=== PATIENT | female | born 1985 | race Hispanic/Latino ===

== ENCOUNTER 2017-01-18 09:05 | Emergency (ER) | payer MEDICAID ==
[2017-01-18] MEDS ORDERED: TYLENOL PO ONE (12:37)
[2017-01-18] MEDS ORDERED: DELTASONE PO ONE (12:39)
[2017-01-18] MEDS ORDERED: ATROVENT IH ONE (12:41)
[2017-01-18] MEDS ORDERED: XOPENEX IH ONE (12:41)
--- NOTE | 2017-01-18 12:41 | Emergency Department Report ---
HPI - General Chief Complaint: Upper Respiratory Infection Time Seen by Provider: 01/18/17 12:36 - HPI HPI: Patient here reports that she has had and chest congestion 3 days. She said she was exposed to her daughter who had the same problem. She says she is coughing up green mucus from her chest and she has yellow mucus from her nose. She says she had some fever and chills. Denies any nausea or vomiting. Patient has a history of rheumatoid arthritis seizures plus endometriosis and she had a hysterectomy in the past. She does not have any cardiac problems and said that she's not having any chest pain she just feels like she is having pressure when she coughs. She said chest and back pain is 8 out of 10 that feels like pressure and only when she coughs. Patient reports that she's been coughing a lot nonstop. Patient is requesting pain medication because she is having rheumatoid arthritis pain to both her hands at 10 out of 10. ED Past Medical Hx - Past Medical History Previous Medical History?: Yes Hx Arthritis: Yes (RHEUMATOID) Hx Seizures: Yes Additional medical history: LUPUS. SICCA SYNDROME. ENDOMETRIOSIS - Surgical History Past Surgical History?: Yes Additional Surgical History: HYSTERECTOMY. "MULTIPLE SURGERIES FOR SCAR TISSUE REMOVAL" - Family History Family history: hypertension - Social History Smoking Status: Current Every Day Smoker Substance Use Type: Prescribed - Medications Home Medications: Home Medications Medication Instructions Recorded Confirmed Last Taken Type ALBUTEROL Inhaler [ProAir HFA 2 puff IH QID PRN #1 inhalation 01/18/17 Unknown Rx Inhaler] Azithromycin [Zithromax Z-ARRON] 250 mg PO DAILY #6 tab 01/18/17 Unknown Rx Cetirizine HCl [ZyrTEC] 10 mg PO QDAY #14 capsule 01/18/17 Unknown Rx Fluticasone [Flonase] 1 spray NS QDAY #1 bottle 01/18/17 Unknown Rx guaiFENesin/CODEINE [Robitussin AC] 5 ml PO Q8H PRN #75 oral.liqd 01/18/17 Unknown Rx ED Review of Systems ROS: Stated complaint: COUGH X3 DAYS/CHEST/BACK PAIN Other details as noted in HPI Comment: All other systems reviewed and negative Constitutional: chills, fever Eyes: denies: eye pain, vision change ENT: congestion. denies: ear pain, throat pain, dental pain Respiratory: cough. denies: shortness of breath, SOB with exertion, SOB at rest , stridor, wheezing Cardiovascular: chest pain (only with coughing). denies: palpitations, edema, syncope Gastrointestinal: denies: abdominal pain, nausea, vomiting Musculoskeletal: back pain (back pain only with coughing), arthralgia (hands from chronic rheumatoid arthritis) Skin: denies: rash Neurological: denies: headache, weakness, numbness, paresthesias, confusion, abnormal gait, vertigo Psychiatric: anxiety Physical Exam - Physical Exam Vital Signs: Vital Signs 01/18/17 09:55 Temperature 99.8 F H Pulse Rate 122 H Respiratory 20 Rate Blood Pressure 112/73 O2 Sat by Pulse 98 Oximetry Vital Signs 01/18/17 01/18/17 01/18/17 09:55 13:03 13:04 Temperature 99.8 F H Pulse Rate 122 H Pulse Rate [ 107 H 105 H Anterior Bilateral Throughout] Respiratory 20 Rate Respiratory 16 18 Rate [Anterior Bilateral Throughout] Blood Pressure 112/73 Blood Pressure [Left] O2 Sat by Pulse 98 Oximetry 01/18/17 01/18/17 13:59 15:03 Temperature Pulse Rate 120 H 99 H Pulse Rate [ Anterior Bilateral Throughout] Respiratory 18 16 Rate Respiratory Rate [Anterior Bilateral Throughout] Blood Pressure Blood Pressure 125/73 [Left] O2 Sat by Pulse 96 97 Oximetry General: 31-year-old patient well-nourished well-developed in no acute distress. Physical Exam: Head: Normocephalic atraumatic Mouth: Moist, no pharyngeal exudate or erythema. Uvula is midline and oral airway is patent. No facial swelling. No peritonsillar abscesses. Nose: Congested with erythema to mucosa. Clear Drainage. Maxillary and frontal sinuses nontender to palpate Neck: Supple, no C-spine tenderness, no tracheal deviation. Nontender to palpate. no adenopathy Ears: Bilateral TMs congested without erythema. Bilateral EAC without any redness swelling or drainage. Abdomen: Soft, nontender to palpate in all quadrants, normal bowel sounds in all quadrant and negative CVA tenderness bilaterally. Back: No vertebral or paraspinal tenderness. No saddle anesthesia. Patient able to ambulate without any difficulties. Negative SLR bilaterally. Neurological: GCS of 15, alert and oriented 3. Speech is clear and fluid. Normal gait. No motor or sensory deficit. Normal reflexes. No facial drooping. No pronator drift and negative Romberg. Eyes: Bilateral pupils equal and reactive to light, bilateral EOM intact. Bilateral sclera and conjunctiva without injection. Normal accommodation. No nystagmus Lungs: Bilateral upper lung moon without wheezing. No rhonchi wheezes or rales. Dry cough. Normal work of breathing. S4 nontender to palpate extremity; No CCE. +2 pulses. No neurovascular compromise. PIP and DIP joint swelling . Capillary refill is less than 3 seconds Cardiovascular: S1-S2, tachycardic at 122, regular rhythm. No murmurs. Skin: clean Dry and intact no rash no lesions Psych: Patient is anxious because she says she is in pain. ED Course Vital Signs 01/18/17 09:55 Temperature 99.8 F H Pulse Rate 122 H Respiratory 20 Rate Blood Pressure 112/73 O2 Sat by Pulse 98 Oximetry Vital Signs 01/18/17 01/18/17 01/18/17 09:55 13:03 13:04 Temperature 99.8 F H Pulse Rate 122 H Pulse Rate [ 107 H 105 H Anterior Bilateral Throughout] Respiratory 20 Rate Respiratory 16 18 Rate [Anterior Bilateral Throughout] Blood Pressure 112/73 Blood Pressure [Left] O2 Sat by Pulse 98 Oximetry 01/18/17 01/18/17 13:59 15:03 Temperature Pulse Rate 120 H 99 H Pulse Rate [ Anterior Bilateral Throughout] Respiratory 18 16 Rate Respiratory Rate [Anterior Bilateral Throughout] Blood Pressure Blood Pressure 125/73 [Left] O2 Sat by Pulse 96 97 Oximetry - Reevaluation(s) Reevaluation #1: 01/18/17 15:30 Patient initially given Deltasone 60 mg by mouth and Tylenol 975 mg by mouth for fever and Deltasone for cough and wheezing and arthritic pain. She did not get any pain relief on her heart rate remains above 120. Patient also with anxiety because she says she is in pain. Patient was given Xopenex 1.25 mg and Atrovent 0.5 mg for coughing and wheezing. Reevaluation, her lung sounds are clear. Patient was also given Percocet 5/325 2 tablets and Valium 10 mg by mouth 1. Patient heart rate is at 99 she feels better and she is on route to be discharged home with her . I discussed with patient that she needs to communicate with her pyrotechnician regarding pain management for chronic rheumatoid arthritis. 01/18/17 15:31 01/18/17 15:32 ED Medical Decision Making - Radiology Data Radiology results: report reviewed X-ray reveals no acute cardiopulmonary processes - Medical Decision Making ED course: I discussed the patient that she has bronchitis and sinusitis. Discussed with her because it's been 3 days is more than likely a virus but because she has underlying chronic medical problem such as lupus and rheumatoid arthritis and her immune system is compromise I will put her on antibiotic to prevent her from getting an infection. Patient voiced understanding of discharge diagnosis and treatment plan. Initially, patient was given Tylenol 975 mg by mouth for elevated temperature and Deltasone 60 mg by mouth for cough , wheezing and rheumatoid pain. This does not relieved her pain and her heart rate remained at 120. And also with anxiety. Patient was given an additional medication to relieve anxiety Valium 10 mg by mouth 1 and for pain Percocet 325 mg/52 tablets. Her heart rate is now below 100 she says she is feeling better. She was given Xopenex 1.25 mg along with Atrovent 0.5 mg for cough and wheezing and open reevaluation her lung sounds are clear. I asked with her that her x-ray results was normal. Patient discharged home with prescription for Zyrtec, Flonase, Zithromax and guaifenesin with codeine. Discussed with her she needs to follow-up with her primary care and pyrotechnician in 2 days. I also discussed with her she needs to follow up with pyrotechnician for chronic rheumatoid arthritis. Critical care attestation.: If time is entered above; I have spent that time in minutes in the direct care of this critically ill patient, excluding procedure time. ED Disposition Clinical Impression: Fever in adult, Arthralgia of both hands, Cough, Anxiety about health Acute bronchitis Qualifiers: Bronchitis organism: unspecified organism Qualified Code(s): J20.9 - Acute bronchitis, unspecified Acute inflammation of sinus Qualifiers: Sinusitis location: unspecified location Recurrence: not specified as recurrent Qualified Code(s): J01.90 - Acute sinusitis, unspecified Disposition: DISCHARGED TO HOME OR SELFCARE Is pt being admited?: No Does the pt Need Aspirin: No Condition: Stable Instructions: Acute Bronchitis (ED), Sinusitis (ED), Arthralgia (ED), Acute Cough (ED) Additional Instructions: Primary care in 2 days for follow-up bronchitis and sinusitis follow-up with your pyrotechnician in 2 days for evaluation of chronic rheumatoid arthritis. Cough medicine that was given to you will cause drowsiness so please do not drive or operate heavy machinery while taking take antibiotic as prescribed. Increase her fluid intake. Prescriptions: ALBUTEROL Inhaler [ProAir HFA Inhaler] 2 puff IH QID PRN #1 inhalation PRN Reason: Shortness Of Breath Azithromycin [Zithromax Z-ARRON] 250 mg PO DAILY #6 tab Cetirizine HCl [ZyrTEC] 10 mg PO QDAY #14 capsule Fluticasone [Flonase] 1 spray NS QDAY #1 bottle guaiFENesin/CODEINE [Robitussin AC] 5 ml PO Q8H PRN #75 oral.liqd PRN Reason: Cough Referrals: MICAELA JIMENEZ MD [Primary Care Provider] - 01/20/17 Your, Licensed Funeral Director in 2 days [Other] - 3-5 Days Forms: Accompanied Note, Work/School Release Form(ED)
--- NOTE | 2017-01-18 13:06 | XRay Report ---
ROUTINE CHEST, TWO VIEWS: PA and lateral views demonstrate the heart and mediastinal contour to be of normal size and shape. The lungs are clear and fully expanded and the soft tissues and bony structures are normal. IMPRESSION: Normal study.
[2017-01-18 14:00] VITALS: BP 125/73
[2017-01-18] MEDS ORDERED: PERCOCET 5/325 PO ONE (14:10)
[2017-01-18] MEDS ORDERED: VALIUM IM ONE (14:10)
== END 2017-01-18 15:59 | disposition home or self-care (01) ==
LOC: ED 09:05
DX: J20.9 Acute bronchitis, unspecified (principal); J01.90 Acute sinusitis, unspecified; M79.642 Pain in left hand; M79.641 Pain in right hand; M06.9 Rheumatoid arthritis, unspecified; M35.00 Sjogren syndrome, unspecified; F17.200 Nicotine dependence, unspecified, uncomplicated
CPT/HCPCS: 71020; 93005; 93010; 94640; 96372; 99283; J3360; J7512

== ENCOUNTER 2017-02-26 15:36 | Emergency (ER) | payer MEDICAID ==
[2017-02-26] MEDS ORDERED: ZOFRAN ODT PO ONE (20:10)
[2017-02-26] MEDS ORDERED: DILAUDID IM ONE (20:10)
--- NOTE | 2017-02-26 21:00 | Emergency Department Report ---
Entered by JAIMIE RODRIGES, acting as scribe for CATARINA CALLE PA. ED General Adult HPI - General Chief complaint: Pain General Stated complaint: RHEUMATOID ARTHRITIS FLARE Time Seen by Provider: 02/26/17 19:08 Source: patient Mode of arrival: Ambulatory Limitations: No Limitations - History of Present Illness Initial comments: 31 year old female with a PMHx of seizures and rheumatoid arthritis presents to the ED c/o a generalized, acute rheumatoid flare-up that began yesterday. Associated symptom includes body aches and knots on bilateral hand joints, but she denies fever, chills, numbness, and tingling. Rates pain an 8/10 in severity. Notes doubling up on prednisone prescription yesterday with no relief. MD Complaint: Rheumatoid flare-up Onset/Timin -: days(s) Location: upper extremity, lower extremity Radiation: non-radiation Severity scale (0 -10): 8 Quality: aching Consistency: constant Improves with: none (doubled up on prescribed prednisone with no relief) Worsens with: none Associated Symptoms: denies other symptoms, other (knots present on upper extremities). denies: chest pain, cough, fever/chills, headaches, malaise, nausea/vomiting, rash, shortness of breath, weakness Treatments Prior to Arrival: other (prednisone) - Related Data Home Medications Medication Instructions Recorded Confirmed Last Taken levETIRAcetam [Keppra TAB] 500 mg PO BID 02/26/17 02/26/17 02/26/17 predniSONE [Deltasone] 1 tab PO DAILY 02/26/17 02/26/17 02/25/17 Allergies Allergy/AdvReac Type Severity Reaction Status Date / Time latex Allergy Swelling Verified 01/18/17 09:59 ketorolac tromethamine AdvReac Seizure Verified 01/18/17 09:59 [From Toradol] meperidine HCl [From Demerol] AdvReac Seizure Verified 01/18/17 09:59 methadone AdvReac Seizure Verified 01/18/17 09:59 prochlorperazine AdvReac Seizure Verified 01/18/17 09:59 [From Compazine] prochlorperazine edisylate AdvReac Seizure Verified 01/18/17 09:59 [From Compazine] prochlorperazine maleate AdvReac Seizure Verified 01/18/17 09:59 [From Compazine] sulfamethoxazole AdvReac Hives Verified 01/18/17 09:59 [From Bactrim] trimethoprim [From Bactrim] AdvReac Hives Verified 01/18/17 09:59 ED Review of Systems Comment: All other systems reviewed and negative Constitutional: denies: chills, diaphoresis, fever, malaise, weakness Respiratory: denies: cough, orthopnea, shortness of breath, SOB with exertion, SOB at rest, stridor Cardiovascular: denies: chest pain, dyspnea on exertion, orthopnea Gastrointestinal: denies: nausea, vomiting Musculoskeletal: joint swelling, arthralgia. denies: back pain Skin: denies: rash Neurological: denies: headache, numbness, paresthesias, abnormal gait, vertigo ED Past Medical Hx - Past Medical History Previous Medical History?: Yes Hx Arthritis: Yes (RHEUMATOID) Hx Seizures: Yes Additional medical history: LUPUS. SICCA SYNDROME. ENDOMETRIOSIS - Surgical History Past Surgical History?: Yes Additional Surgical History: HYSTERECTOMY. "MULTIPLE SURGERIES FOR SCAR TISSUE REMOVAL" - Family History Family history: hypertension - Social History Smoking Status: Current Every Day Smoker Substance Use Type: Alcohol, Prescribed - Medications Home Medications: Home Medications Medication Instructions Recorded Confirmed Last Taken Type levETIRAcetam [Keppra TAB] 500 mg PO BID 02/26/17 02/26/17 02/26/17 History predniSONE [Deltasone] 1 tab PO DAILY 02/26/17 02/26/17 02/25/17 History ED Physical Exam - General Limitations: No Limitations General appearance: alert, in no apparent distress - Head Head exam: Present: atraumatic, normocephalic - Eye Eye exam: Present: normal appearance, EOMI Pupils: Present: normal accommodation - ENT ENT exam: Present: normal exam, mucous membranes moist - Neck Neck exam: Present: normal inspection, full ROM. Absent: tenderness, lymphadenopathy - Respiratory Respiratory exam: Present: normal lung sounds bilaterally. Absent: respiratory distress, wheezes, rales, rhonchi, chest wall tenderness - Cardiovascular Cardiovascular Exam: Present: regular rate, normal rhythm, normal heart sounds - GI/Abdominal GI/Abdominal exam: Present: soft, normal bowel sounds. Absent: distended, tenderness, guarding, rebound, rigid - Extremities Exam Extremities exam: Present: normal inspection (+2 pulses), full ROM, tenderness ( MP, DIP, and PIP joints), normal capillary refill, joint swelling (MP, DIP, and PIP joints). Absent: pedal edema, calf tenderness, other (ulnar deviation, but rheumatoid flare-up is present to extremities) - Back Exam Back exam: Present: normal inspection, full ROM. Absent: tenderness, CVA tenderness (R), CVA tenderness (L), muscle spasm, paraspinal tenderness, vertebral tenderness, rash noted - Neurological Exam Neurological exam: Present: alert, oriented X3, normal gait, reflexes normal. Absent: motor sensory deficit - Psychiatric Psychiatric exam: Present: normal affect, normal mood - Skin Skin exam: Present: warm, dry, intact. Absent: rash ED Course Vital Signs 02/26/17 02/26/17 16:04 20:07 Temperature 98.2 F Pulse Rate 100 H 96 H Respiratory 20 18 Rate Blood Pressure 114/80 Blood Pressure 118/78 [Left] O2 Sat by Pulse 99 97 Oximetry - Reevaluation(s) Reevaluation #1: 02/26/17 20:45 patient voiced pain relief after dilaudid , solumedrol and zofran ED Medical Decision Making - Medical Decision Making ED course: Patient with rheumatoid arthritis flareup. Patient was given Solu- Medrol 125 mg IM, Zofran 4 mg ODT and Dilaudid 10 mg IM fourth floor flareup after trying home medication. I instructed patient if she needs to follow-up with her cement mason on Tuesday. Pain is better and patient discharged home with family. ED Disposition Clinical Impression: Flare of rheumatoid arthritis, Arthralgia of multiple sites, Encounter for smoking cessation counseling Disposition: DISCHARGED TO HOME OR SELFCARE Is pt being admited?: No Does the pt Need Aspirin: No Condition: Stable Instructions: Rheumatoid Arthritis (ED), Chronic Pain (ED), How to Stop Smoking (ED) Additional Instructions: Follow-up with your cement mason in 2 days. Please stop smoking as this can increase her pain Referrals: PRIMARY CARE,MD [Primary Care Provider] - 3-5 Days Your, Coding Technician [Other] - 02/28/17 This documentation as recorded by the ANTELMO chase JASMINE,accurately reflects the service I personally performed and the decisions made by ,CATARINA CALLE PA.
[2017-02-26 21:05] VITALS: BP 108/67
== END 2017-02-26 21:08 | disposition home or self-care (01) ==
LOC: ED 15:36
DX: M06.9 Rheumatoid arthritis, unspecified (principal); R56.9 Unspecified convulsions; F17.200 Nicotine dependence, unspecified, uncomplicated; Z71.6 Tobacco abuse counseling; Z90.710 Acquired absence of both cervix and uterus; Z91.040 Latex allergy status; Z88.8 Allergy status to other drugs, medicaments and biological substances
CPT/HCPCS: 96372; 99282; J1170; J2930; Q0162

== ENCOUNTER 2019-05-12 09:36 | Emergency (ER) | payer MEDICAID ==
[2019-05-12 09:42] VITALS: BP 108/76
[2019-05-12] MEDS ORDERED: PERCOCET 5/325 PO ONE (10:25)
[2019-05-12] MEDS ORDERED: DECADRON IM ONE (10:25)
--- NOTE | 2019-05-12 10:25 | Emergency Department Report ---
ED General Adult HPI - General Chief complaint: Pain General Stated complaint: ARTHRITIS PAIN Time Seen by Provider: 05/12/19 10:15 Source: patient Mode of arrival: Ambulatory Limitations: No Limitations - History of Present Illness Initial comments: Patient reports history of rheumatoid arthritis and states that she is in a flare up which she describes as worse when she has had in a couple years. She is compliant with her meds as prescribed by rheumatology and was seen there yesterday and got a steroid injection but reports persistent pain. Also reports a low-grade fever. Denies any other complaints. -: Gradual, days(s) (3) Location: upper extremity, lower extremity Radiation: non-radiation Severity scale (0 -10): 8 Quality: aching Consistency: constant Improves with: none Worsens with: none Associated Symptoms: denies other symptoms Treatments Prior to Arrival: none - Related Data Home Medications Medication Instructions Recorded Confirmed Last Taken levETIRAcetam [Keppra TAB] 500 mg PO BID 02/26/17 02/26/17 02/26/17 predniSONE [Deltasone] 1 tab PO DAILY 02/26/17 02/26/17 02/25/17 Previous Rx's Medication Instructions Recorded Last Taken Type HYDROcodone/APAP 5-325 [[place] 1 each PO Q6HR PRN #12 tablet 02/26/17 Unknown Rx 5/325] methylPREDNISolone [Medrol] 4 mg PO QAM #1 tab.ds.pk 02/26/17 Unknown Rx Acetaminophen/Codeine [Tylenol 1 tab PO Q4HR PRN #15 tablet 05/12/19 Unknown Rx /Codeine # 3 tab] methylPREDNISolone [Medrol 4MG 4 mg PO DAILY #1 tab.ds.pk 05/12/19 Unknown Rx DOSEPAK (21 tabs)] Allergies Allergy/AdvReac Type Severity Reaction Status Date / Time latex Allergy Swelling Verified 01/18/17 09:59 ketorolac tromethamine AdvReac Seizure Verified 01/18/17 09:59 [From Toradol] meperidine HCl [From Demerol] AdvReac Seizure Verified 01/18/17 09:59 methadone AdvReac Seizure Verified 01/18/17 09:59 prochlorperazine AdvReac Seizure Verified 01/18/17 09:59 [From Compazine] prochlorperazine edisylate AdvReac Seizure Verified 01/18/17 09:59 [From Compazine] prochlorperazine maleate AdvReac Seizure Verified 01/18/17 09:59 [From Compazine] sulfamethoxazole AdvReac Hives Verified 01/18/17 09:59 [From Bactrim] trimethoprim [From Bactrim] AdvReac Hives Verified 01/18/17 09:59 ED Review of Systems ROS: Stated complaint: ARTHRITIS PAIN Other details as noted in HPI Comment: All other systems reviewed and negative Musculoskeletal: as per HPI ED Past Medical Hx - Past Medical History Previous Medical History?: Yes Hx Arthritis: Yes (RHEUMATOID) Hx Seizures: Yes Additional medical history: LUPUS. SICCA SYNDROME. ENDOMETRIOSIS - Surgical History Past Surgical History?: Yes Additional Surgical History: HYSTERECTOMY. "MULTIPLE SURGERIES FOR SCAR TISSUE REMOVAL" - Social History Smoking Status: Current Every Day Smoker - Medications Home Medications: Home Medications Medication Instructions Recorded Confirmed Last Taken Type HYDROcodone/APAP 5-325 [[place] 1 each PO Q6HR PRN #12 tablet 02/26/17 Unknown Rx 5/325] levETIRAcetam [Keppra TAB] 500 mg PO BID 02/26/17 02/26/17 02/26/17 History methylPREDNISolone [Medrol] 4 mg PO QAM #1 tab.ds.pk 02/26/17 Unknown Rx predniSONE [Deltasone] 1 tab PO DAILY 02/26/17 02/26/17 02/25/17 History Acetaminophen/Codeine [Tylenol 1 tab PO Q4HR PRN #15 tablet 05/12/19 Unknown Rx /Codeine # 3 tab] methylPREDNISolone [Medrol 4MG 4 mg PO DAILY #1 tab.ds.pk 05/12/19 Unknown Rx DOSEPAK (21 tabs)] ED Physical Exam - General Limitations: No Limitations General appearance: alert, in no apparent distress - Head Head exam: Present: atraumatic, normocephalic - Eye Eye exam: Present: normal appearance - ENT ENT exam: Present: mucous membranes moist - Neck Neck exam: Present: normal inspection - Respiratory Respiratory exam: Present: normal lung sounds bilaterally. Absent: respiratory distress - Cardiovascular Cardiovascular Exam: Present: regular rate, normal rhythm. Absent: systolic murmur, diastolic murmur, rubs, gallop - GI/Abdominal GI/Abdominal exam: Present: soft, normal bowel sounds - Extremities Exam Extremities exam: Present: other (findings suggestive of rheumatoid arthritis to bilateral hands with joint swelling. No signs of septic joint. CMS intact.) - Back Exam Back exam: Present: normal inspection - Neurological Exam Neurological exam: Present: alert, oriented X3 - Psychiatric Psychiatric exam: Present: normal affect, normal mood - Skin Skin exam: Present: warm, dry, intact, normal color. Absent: rash ED Course Vital Signs 05/12/19 05/12/19 09:41 10:15 Temperature 99.3 F Pulse Rate 88 Respiratory 18 18 Rate Blood Pressure 108/76 O2 Sat by Pulse 97 Oximetry ED Medical Decision Making - Medical Decision Making RA flare increase steroids pain control fu rheum - Differential Diagnosis RA, chronic pain Critical care attestation.: If time is entered above; I have spent that time in minutes in the direct care of this critically ill patient, excluding procedure time. ED Disposition Clinical Impression: Rheumatoid arthritis flare Disposition: DC-01 TO HOME OR SELFCARE Is pt being admited?: No Condition: Good Instructions: Rheumatoid Arthritis (ED) Prescriptions: methylPREDNISolone [Medrol 4MG DOSEPAK (21 tabs)] 4 mg PO DAILY #1 tab.ds.pk Acetaminophen/Codeine [Tylenol /Codeine # 3 tab] 1 tab PO Q4HR PRN #15 tablet PRN Reason: Pain Referrals: RAISA TOBAR MD [Referring] - 3-5 Days Time of Disposition: 10:24
[2019-05-12] MEDS ORDERED: NORMODYNE ONE (17:06)
== END 2019-05-12 10:31 | disposition home or self-care (01) ==
LOC: ED 09:36
DX: M06.9 Rheumatoid arthritis, unspecified (principal); F17.200 Nicotine dependence, unspecified, uncomplicated; M32.9 Systemic lupus erythematosus, unspecified
CPT/HCPCS: 99282

== ENCOUNTER 2019-09-10 21:12 | Inpatient (IN) | payer MEDICAID ==
[2019-09-10] MEDS ORDERED: ASPIRIN 325 MG TAB PO ONE (21:29)
[2019-09-10] MEDS ORDERED: ONDANSETRON 4 MG/2 ML INJ ONE (21:33)
[2019-09-10] MEDS ORDERED: fentaNYL 100 MCG/2 ML INJ ONE (21:33)
[2019-09-10] MEDS ORDERED: NITROGLYCERIN 2% OINT 1 GM TP ONE (21:34)
[2019-09-10] MEDS ORDERED: fentaNYL 100 MCG/2 ML INJ IV ONE ×2 (21:38→21:54)
[2019-09-10] MEDS ORDERED: ONDANSETRON 4 MG/2 ML INJ IV ONE (21:39)
[2019-09-10] MEDS ORDERED: methylPREDNISolone Sod Succinate 125 MG/2 ML INJ IV ONE (21:44)
--- NOTE | 2019-09-10 21:53 | XRay Report ---
CHEST 1 VIEW INDICATION / CLINICAL INFORMATION: Chest Pain. COMPARISON: 01/18/2017 FINDINGS: SUPPORT DEVICES: None. HEART / MEDIASTINUM: No significant abnormality. LUNGS / PLEURA: No significant pulmonary or pleural abnormality. No pneumothorax. ADDITIONAL FINDINGS: No significant additional findings. IMPRESSION: 1. No significant change Signer Name: Galindo Morales MD Signed: 09/10/2019 9:49 PM Workstation Name: [id number]
--- NOTE | 2019-09-10 21:59 | Emergency Department Report ---
HPI - General Chief Complaint: Chest Pain Time Seen by Provider: 09/10/19 21:38 - HPI HPI: Room 21 The patient is a 34-year-old female presenting with a chief complaint of chest pain. The patient states she began having some chest discomfort last night at approximately 21:00. The patient states this morning the pain worsened and feels as though someone is squeezing her lungs throat and jaw. Patient missed a shortness of breath, nausea/vomiting and diaphoresis with her pain. The patient describes her chest pain is constant but waxing and waning. Patient states the pain increases with movement and when lying supine. Patient denies cough or f ever. Location: [See above] Duration: [See above] Quality: [See above] Severity: [See above] Timing: [See above] Context: [See above] Modifying factors: [See above] Associated signs and symptoms: [see above] ED Past Medical Hx - Past Medical History Previous Medical History?: Yes Hx Arthritis: Yes (RHEUMATOID) Hx Seizures: Yes Additional medical history: LUPUS. SICCA SYNDROME. ENDOMETRIOSIS - Surgical History Past Surgical History?: Yes Additional Surgical History: HYSTERECTOMY. "MULTIPLE SURGERIES FOR SCAR TISSUE REMOVAL" - Family History Family history: no significant - Social History Smoking Status: Current Every Day Smoker (1/14 pack per day) Substance Use Type: None (denies illicit drug use), Alcohol (occasional) - Medications Home Medications: Home Medications Medication Instructions Recorded Confirmed Last Taken Type HYDROcodone/APAP 5-325 [[place] 1 each PO Q6HR PRN #12 tablet 02/26/17 Unknown Rx 5/325] levETIRAcetam [Keppra TAB] 500 mg PO BID 02/26/17 02/26/17 02/26/17 History methylPREDNISolone [Medrol] 4 mg PO QAM #1 tab.ds.pk 02/26/17 Unknown Rx predniSONE [Deltasone] 1 tab PO DAILY 02/26/17 02/26/17 02/25/17 History Acetaminophen/Codeine [Tylenol 1 tab PO Q4HR PRN #15 tablet 05/12/19 Unknown Rx /Codeine # 3 tab] methylPREDNISolone [Medrol 4MG 4 mg PO DAILY #1 tab.ds.pk 05/12/19 Unknown Rx DOSEPAK (21 tabs)] ED Review of Systems ROS: Stated complaint: CHEST PAIN/BACK Other details as noted in HPI Constitutional: diaphoresis Eyes: denies: eye pain ENT: denies: throat pain Respiratory: shortness of breath Cardiovascular: chest pain Endocrine: no symptoms reported Gastrointestinal: nausea, vomiting. denies: abdominal pain Genitourinary: denies: dysuria Musculoskeletal: denies: back pain Neurological: denies: headache Physical Exam - Physical Exam Vital Signs: Vital Signs 09/10/19 09/10/19 09/10/19 21:25 21:29 21:37 Temperature 98.7 F 98.7 F Pulse Rate 120 H 123 H Respiratory 16 20 16 Rate Blood Pressure 118/71 [Left] O2 Sat by Pulse 99 100 Oximetry 09/10/19 21:40 Temperature Pulse Rate Respiratory 18 Rate Blood Pressure [Left] O2 Sat by Pulse Oximetry Physical Exam: GENERAL: The patient is well-developed well-nourished lying on stretcher appearing to be in moderate discomfort. [] HEENT: Normocephalic. Atraumatic. Extraocular motions are intact. Patient has moist mucous membranes. NECK: Supple. Trachea midline CHEST/LUNGS: Clear to auscultation. There is no respiratory distress noted. HEART/CARDIOVASCULAR: Regular. There is tachycardia. There is no gallop rub or murmur. ABDOMEN: Abdomen is soft, nontender. Patient has normal bowel sounds. There is no abdominal distention. SKIN: There is no rash. There is no edema. There is no diaphoresis. NEURO: The patient is awake, alert, and oriented. The patient is cooperative. The patient has normal speech MUSCULOSKELETAL: There is no evidence of acute injury. ED Course Vital Signs 09/10/19 09/10/19 09/10/19 21:25 21:29 21:37 Temperature 98.7 F 98.7 F Pulse Rate 120 H 123 H Respiratory 16 20 16 Rate Blood Pressure 118/71 [Left] O2 Sat by Pulse 99 100 Oximetry 09/10/19 21:40 Temperature Pulse Rate Respiratory 18 Rate Blood Pressure [Left] O2 Sat by Pulse Oximetry - Consultations Consultation #1: 09/10/19 21:29 EKG sent to and briefly discussed with Dr Kidd- pericarditis. Can cancel code STEMI for now and call back with further history. After call back has recommended that we administer steroids and anti-inflammatory and treat the patient for pericarditis ED Medical Decision Making - Lab Data Result diagrams: 09/10/19 23:40 09/10/19 21:39 Laboratory Tests 09/10/19 09/10/19 21:39 23:40 WBC 18.9 H RBC 4.57 Hgb 13.3 Hct 40.4 MCV 88 MCH 29 MCHC 33 RDW 15.7 H Plt Count 340 Lymph % (Auto) Sample Maker Hand [place] % (Auto) Sample Maker Hand Eos % (Auto) Sample Maker Hand Baso % (Auto) Sample Maker Hand Lymph # Sample Maker Hand [place] # Sample Maker Hand Eos # Sample Maker Hand Baso # Sample Maker Hand Seg Neutrophils % Sample Maker Hand Seg Neutrophils # Sample Maker Hand Sodium 133 L Potassium 3.9 Chloride 100.5 Carbon Dioxide 16 L Anion Gap 20 BUN 12 Creatinine 0.8 Estimated GFR > 60 BUN/Creatinine Ratio 15 Glucose 144 H Calcium 9.0 Troponin T < 0.010 - EKG Data -: EKG Interpreted by Me EKG shows normal: sinus rhythm Rate: tachycardia (115 bpm) - EKG Data When compared to previous EKG there are: changes noted Interpretation: nonspecific ST-T wave apoorva (ST elevation in leads 2, 3, aVF, V5, V6.) - Radiology Data Radiology results: report reviewed (chest x-ray, VQ scan), image reviewed (chest x-ray, VQ scan) interpreted by me: Chest x-ray-no focal infiltrates, no pneumothorax [address] [address] XRay Report Signed Patient: TRINIDAD BECKER MR#: [id number] : 1985 Acct:[id number] Age/Sex: 34 / F ADM Date: 09/10/19 Loc: ED Attending Dr: Ordering Physician: PATTIE SANDERS MD Date of Service: 09/10/19 Procedure(s): XR chest 1V ap Accession Number(s): [id number] cc: PATTIE SANDERS MD Fluoro Time In Minutes: CHEST 1 VIEW INDICATION / CLINICAL INFORMATION: Chest Pain. COMPARISON: 01/18/2017 FINDINGS: SUPPORT DEVICES: None. HEART / MEDIASTINUM: No significant abnormality. LUNGS / PLEURA: No significant pulmonary or pleural abnormality. No pneumothorax. ADDITIONAL FINDINGS: No significant additional findings. IMPRESSION: 1. No significant change Signer Name: Galindo Morales MD Signed: 09/10/2019 9:49 PM Workstation Name: [id number] Transcribed By: JANIS Dictated By: Galindo Morales MD Electronically Authenticated By: Galindo Morales MD Signed Date/Time: 09/10/192148 DD/ 47 TD/TT: [facility] [address] [place] [address] Nuclear Medicine Report Signed Patient: TRINIDAD BECKER MR#: [id number] : 1985 Acct:[id number] Age/Sex: 34 / F ADM Date: 09/10/19 Loc: ED Attending Dr: Ordering Physician: PATTIE SANDERS MD Date of Service: 09/10/19 Procedure(s): NM lung scan perf/vent Accession Number(s): [id number] cc: PATTIE SANDERS MD Ventilation/perfusion scan of the lungs INDICATION: Chest pain and pleurisy TECHNIQUE: The patient was administered 5.3 mCi of technetium 99 MAA for the perfusion phase of the study and 8.8 mCi of xenon-133 for the ventilation phase FINDINGS: The ventilation phase shows minimal air trapping at the left base. The perfusion phase shows no focal segmental or subsegmental perfusion defects and there is no evidence of pulmonary embolus. Signer Name: Galindo Morales MD Signed: 09/10/2019 11:11 PM Workstation Name: [id number] Transcribed By: JANIS Dictated By: Galindo Morales MD Electronically Authenticated By: Galindo Morales MD Signed Date/Time: 09/10/192310 DD/ 08 TD/TT: - Differential Diagnosis ACS, pericarditis, PE, GERD Critical care attestation.: If time is entered above; I have spent that time in minutes in the direct care of this critically ill patient, excluding procedure time. ED Disposition Clinical Impression: Chest pain, Acute pericarditis Disposition: OP ADMIT IP TO THIS HOSP Is pt being admited?: Yes Does the pt Need Aspirin: Yes Condition: Fair Instructions: Chest Pain (ED) Referrals: PRIMARY CARE, [Primary Care Provider] - 3-5 Days Time of Disposition: 00:05 (hospitalist paged (Dr Bowden))
[2019-09-10 22:22] LABS: BUN/Creatinine Ratio 15; Blood Urea Nitrogen 12 mg/dL (7-17); Hemolysis Index 15
--- NOTE | 2019-09-10 23:15 | Nuclear Medicine Report ---
Ventilation/perfusion scan of the lungs INDICATION: Chest pain and pleurisy TECHNIQUE: The patient was administered 5.3 mCi of technetium 99 MAA for the perfusion phase of the s tudy and 8.8 mCi of xenon-133 for the ventilation phase FINDINGS: The ventilation phase shows minimal air trapping at the left base. The perfusion phase show s no focal segmental or subsegmental perfusion defects and there is no evidence of pulmonary embolus. Signer Name: Galindo Morales MD Signed: 09/10/2019 11:11 PM Workstation Name: [id number]
[2019-09-10] MEDS ORDERED: HYDROcodone/ACETAMINOPHEN 5-325 MG TAB PO ONE (23:51)
[2019-09-11 00:01] LABS: Hematocrit 40.4 % (30.3-42.9); Hemoglobin 13.3 gm/dl (10.1-14.3); Mean Corpuscular HGB Conc 33 % (30-34); Mean Corpuscular Volume 88 fl (79-97); Platelet Count 340 K/mm3 (140-440); Red Blood Count 4.57 M/mm3 (3.65-5.03); Red Cell Distribution Width 15.7 % (13.2-15.2)
[2019-09-11] MEDS ORDERED: NITROGLYCERIN 0.4 MG TAB SUBL SL PRN (00:46)
[2019-09-11] MEDS ORDERED: MAGNESIUM HYDROXIDE (MOM) ORAL LIQD UDC PO PRN (00:46)
[2019-09-11] MEDS ORDERED: ACETAMINOPHEN 325 MG TAB PO PRN (00:46)
[2019-09-11] MEDS ORDERED: IBUPROFEN 600 MG TAB PO PRN (01:00)
--- NOTE | 2019-09-11 02:23 | History and Physical Report ---
History of Present Illness Date of examination: 09/11/19 Date of admission: 09/11/19 Chief complaint: Chest pain History of present illness: 34-year-old female presenting to the emergency room with chest pain. Chest pain is said to be squeezing in nature. She has had associated nausea and vomiting and diaphoresis. She has significant history of seizure disorder, lupus and rheumatoid arthritis. There is no known relieving or exacerbating factor for her chest pain. At times it was difficult to take a deep breath. EKG done in the emergency room and reviewed by the sign manufacturer indicates possible pericarditis. Patient was given steroids and nonsteroidal anti-inflammatory medication with some relief. Past History Past Medical History: seizures, other (Lupus, rheumatoid arthritis,) Past Surgical History: , hysterectomy, Other (Laparoscopic surgeries in the past) Social history: smoking (Smokes less than half a pack of cigarette daily, takes alcohol occasionally) Family history: CAD, cancer, diabetes Medications and Allergies Allergies Allergy/AdvReac Type Severity Reaction Status Date / Time latex Allergy Swelling Verified 01/18/17 09:59 ketorolac tromethamine AdvReac Seizure Verified 01/18/17 09:59 [From Toradol] meperidine HCl [From Demerol] AdvReac Seizure Verified 01/18/17 09:59 methadone AdvReac Seizure Verified 01/18/17 09:59 prochlorperazine AdvReac Seizure Verified 01/18/17 09:59 [From Compazine] prochlorperazine edisylate AdvReac Seizure Verified 01/18/17 09:59 [From Compazine] prochlorperazine maleate AdvReac Seizure Verified 01/18/17 09:59 [From Compazine] sulfamethoxazole AdvReac Hives Verified 01/18/17 09:59 [From Bactrim] trimethoprim [From Bactrim] AdvReac Hives Verified 01/18/17 09:59 Home Medications Medication Instructions Recorded Confirmed Last Taken Type HYDROcodone/APAP 5-325 [[place] 1 each PO Q6HR PRN #12 tablet 02/26/17 Unknown Rx 5/325] levETIRAcetam [Keppra TAB] 500 mg PO BID 02/26/17 02/26/17 02/26/17 History methylPREDNISolone [Medrol] 4 mg PO QAM #1 tab.ds.pk 02/26/17 Unknown Rx predniSONE [Deltasone] 1 tab PO DAILY 02/26/17 02/26/17 02/25/17 History Acetaminophen/Codeine [Tylenol 1 tab PO Q4HR PRN #15 tablet 05/12/19 Unknown Rx /Codeine # 3 tab] methylPREDNISolone [Medrol 4MG 4 mg PO DAILY #1 tab.ds.pk 05/12/19 Unknown Rx DOSEPAK (21 tabs)] Active Meds: Active Medications Acetaminophen (Tylenol) 650 mg PO Q4H PRN PRN Reason: Pain MILD(1-3)/Fever >100.5/LARIOS Ibuprofen (Ibuprofen) 600 mg PO Q6H PRN PRN Reason: Pain, Mild (1-3) Magnesium Hydroxide (Milk Of Magnesia) 30 ml PO Q4H PRN PRN Reason: Constipation Morphine Sulfate (Morphine) 2 mg IV Q5MIN PRN PRN Reason: Chest Pain unrelieved by NTG Nitroglycerin (Nitrostat) 0.4 mg SL Q5M PRN PRN Reason: Chest Pain Ondansetron HCl (Zofran) 4 mg IV Q8H PRN PRN Reason: Nausea And Vomiting Pantoprazole Sodium (Protonix) 40 mg PO QDAY CHAD Sodium Chloride (Sodium Chloride Flush Syringe 10 Ml) 10 ml IV PRN PRN PRN Reason: LINE FLUSH Sodium Chloride (Sodium Chloride Flush Syringe 10 Ml) 10 ml IV BID CHAD Review of Systems Cardiovascular: chest pain Exam - Constitutional Vitals: Temp Pulse Resp BP Pulse Ox 98.7 F 91 H 14 105/69 97 09/10/19 21:37 09/11/19 00:02 09/11/19 00:02 09/11/19 00:02 09/11/19 00:02 General appearance: Present: no acute distress, mild distress - EENT Eyes: Present: PERRL, EOM intact ENT: hearing intact, clear oral mucosa, dentition normal - Neck Neck: Present: supple, normal ROM - Respiratory Respiratory effort: normal Respiratory: bilateral: CTA - Cardiovascular Rhythm: regular Heart Sounds: Present: S1 & S2 - Extremities Extremities: no ischemia, No edema Peripheral Pulses: within normal limits - Integumentary Integumentary: Present: clear, warm, dry - Musculoskeletal Musculoskeletal: strength equal bilaterally - Psychiatric Psychiatric: appropriate mood/affect, intact judgment & insight, cooperative - Neurologic Neurologic: CNII-XII intact, moves all extremities Results - Labs CBC & Chem 7: 09/10/19 23:40 09/10/19 21:39 Labs: Abnormal lab results 09/10/19 09/10/19 Range/Units 21:39 23:40 WBC 18.9 H (4.5-11.0) K/mm3 RDW 15.7 H (13.2-15.2) % Sodium 133 L (137-145) mmol/L Carbon Dioxide 16 L (22-30) mmol/L Glucose 144 H (65-100) mg/dL Assessment and Plan - Patient Problems (1) Acute pericarditis Current Visit: Yes Status: Acute Plan to address problem: Patient admitted to telemetry. Chest pain probably secondary to pericarditis. Been placed on nonsteroidal anti-inflammatory medication. We will monitor EKG and will await further evaluation by sign manufacturer. Patient will be scheduled for echocardiogram, and will also check serial cardiac enzymes. (2) Chest pain Current Visit: Yes Status: Acute Plan to address problem: Probably secondary to pericarditis. We will continue to monitor on telemetry. (3) DVT prophylaxis Current Visit: Yes Status: Acute Plan to address problem: We place on subcu to heparin. (4) Full code status Current Visit: Yes Status: Acute
[2019-09-11] MEDS: MORPHINE 2 MG/1 ML INJ IV PRN ×3 (04:28→23:27)
[2019-09-11 04:31] LABS: Basophils % (Manual) 0 % (0.0-1.8); Eosinophils % (Manual) 0 % (0.0-4.3); Total Cells Counted 100
[2019-09-11 04:32] LABS: Anisocytosis 1+; Platelet Estimate Consistent w Auto
[2019-09-11 06:51] LABS: Hematocrit 41.1 % (30.3-42.9); Hemoglobin 13.2 gm/dl (10.1-14.3); Mean Corpuscular HGB Conc 32 % (30-34); Mean Corpuscular Volume 89 fl (79-97); Platelet Count 353 K/mm3 (140-440); Red Blood Count 4.64 M/mm3 (3.65-5.03); Red Cell Distribution Width 15.8 % (13.2-15.2)
[2019-09-11 07:05] LABS: BUN/Creatinine Ratio 18; Blood Urea Nitrogen 11 mg/dL (7-17); Calcium 9.3 mg/dL (8.4-10.2); Hemolysis Index 10
[2019-09-11 09:23] LABS: Basophils % (Manual) 0 % (0.0-1.8); Eosinophils % (Manual) 0 % (0.0-4.3); Myelocytes # (Manual) 0.2 K/mm3; Platelet Estimate Consistent w Auto; RBC Morphology Normal; Total Cells Counted 100
[2019-09-11] MEDS: PANTOPRAZOLE 40 MG TAB PO SCH (09:59)
--- NOTE | 2019-09-11 10:43 | Consultation ---
History of Present Illness Consult date: 09/11/19 Consult reason: chest pain History of present illness: The patient said 34-year-old woman with lupus, her lupus is currently maintained on prednisone therapy. She has no prior cardiac history. She presented to the hospital with a one to 2 day history of persistent chest pain. She describes generalized pain which radiates to her back and neck. The pain is pleuritic, in the supine position, and somewhat relieved by sitting up and leaning forward. There is no shortness of breath, no palpitations, no lower extremity edema. T here is no exertional component. EKG is sinus rhythm with diffuse convex ST elevations, very suggestive of acute pericarditis.x is normal. A chest CTA was negative including negative PE protocol. Laboratory exam shows a leukocytosis of 18,000, as noted patient is on long-term oral steroids. Past History Past Medical History: seizures, other (Lupus, rheumatoid arthritis,) Past Surgical History: , hysterectomy, Other (Laparoscopic surgeries in the past) Social history: smoking (Smokes less than half a pack of cigarette daily, takes alcohol occasionally) Family history: CAD, cancer, diabetes Medications and Allergies Allergies Allergy/AdvReac Type Severity Reaction Status Date / Time latex Allergy Swelling Verified 01/18/17 09:59 ketorolac tromethamine AdvReac Seizure Verified 01/18/17 09:59 [From Toradol] meperidine HCl [From Demerol] AdvReac Seizure Verified 01/18/17 09:59 methadone AdvReac Seizure Verified 01/18/17 09:59 prochlorperazine AdvReac Seizure Verified 01/18/17 09:59 [From Compazine] prochlorperazine edisylate AdvReac Seizure Verified 01/18/17 09:59 [From Compazine] prochlorperazine maleate AdvReac Seizure Verified 01/18/17 09:59 [From Compazine] sulfamethoxazole AdvReac Hives Verified 01/18/17 09:59 [From Bactrim] trimethoprim [From Bactrim] AdvReac Hives Verified 01/18/17 09:59 Home Medications Medication Instructions Recorded Confirmed Last Taken Type HYDROcodone/APAP 5-325 [[place] 1 each PO Q6HR PRN #12 tablet 02/26/17 Unknown Rx 5/325] levETIRAcetam [Keppra TAB] 500 mg PO BID 02/26/17 02/26/17 02/26/17 History methylPREDNISolone [Medrol] 4 mg PO QAM #1 tab.ds.pk 02/26/17 Unknown Rx predniSONE [Deltasone] 1 tab PO DAILY 02/26/17 02/26/17 02/25/17 History Acetaminophen/Codeine [Tylenol 1 tab PO Q4HR PRN #15 tablet 05/12/19 Unknown Rx /Codeine # 3 tab] methylPREDNISolone [Medrol 4MG 4 mg PO DAILY #1 tab.ds.pk 05/12/19 Unknown Rx DOSEPAK (21 tabs)] Active Meds: Active Medications Acetaminophen (Tylenol) 650 mg PO Q4H PRN PRN Reason: Pain MILD(1-3)/Fever >100.5/LARIOS Magnesium Hydroxide (Milk Of Magnesia) 30 ml PO Q4H PRN PRN Reason: Constipation Morphine Sulfate (Morphine) 2 mg IV Q5MIN PRN PRN Reason: Chest Pain unrelieved by NTG Last Admin: 09/11/19 04:28 Dose: 2 mg Documented by: Nitroglycerin (Nitrostat) 0.4 mg SL Q5M PRN PRN Reason: Chest Pain Ondansetron HCl (Zofran) 4 mg IV Q8H PRN PRN Reason: Nausea And Vomiting Pantoprazole Sodium (Protonix) 40 mg PO QDAY [facility] Last Admin: 09/11/19 09:59 Dose: 40 mg Documented by: Sodium Chloride (Sodium Chloride Flush Syringe 10 Ml) 10 ml IV PRN PRN PRN Reason: LINE FLUSH Sodium Chloride (Sodium Chloride Flush Syringe 10 Ml) 10 ml IV BID [facility] Last Admin: 09/11/19 10:00 Dose: 10 ml Documented by: Review of Systems Cardiovascular: chest pain, no orthopnea, no palpitations, no rapid/irregular heart beat, no edema, no syncope, no lightheadedness, no shortness of breath Physical Examination Vital Signs Temp Resp Pulse Ox 98.7 F 16 99 09/10/19 21:25 09/10/19 21:25 09/10/19 21:25 General appearance: no acute distress HEENT: Positive: PERRL Neck: Positive: neck supple Cardiac: Positive: Reg Rate and Rhythm (no murmur, no pericardial rub) Lungs: Positive: clear to auscultation Neuro: Positive: Grossly Intact Abdomen: Positive: Soft Female genitourinary: deferred Skin: Positive: Clear Extremities: Absent: edema Results 09/11/19 05:50 09/11/19 05:50 CBC 09/10/19 09/11/19 Range/Units 23:40 05:50 WBC 18.9 H 15.2 H (4.5-11.0) K/mm3 RBC 4.57 4.64 (3.65-5.03) M/mm3 Hgb 13.3 13.2 (10.1-14.3) gm/dl Hct 40.4 41.1 (30.3-42.9) % Plt Count 340 353 (140-440) K/mm3 Lymph # Wrap Knitting Machine Operator [facility] # Wrap Knitting Machine Operator Eos # Wrap Knitting Machine Operator Baso # Wrap Knitting Machine Operator Comprehensive Metabolic Panel 09/10/19 09/11/19 Range/Units 21:39 05:50 Sodium 133 L 141 D (137-145) mmol/L Potassium 3.9 4.7 D (3.6-5.0) mmol/L Chloride 100.5 102.6 (98-107) mmol/L Carbon Dioxide 16 L 23 D (22-30) mmol/L BUN 12 11 (7-17) mg/dL Creatinine 0.8 0.6 L (0.7-1.2) mg/dL Glucose 144 H 137 H (65-100) mg/dL Calcium 9.0 9.3 (8.4-10.2) mg/dL EKG interpretations - Telemetry EKG Rhythm: Sinus Rhythm (with diffuse ST segment elevations suggestive of acute pericarditis) Assessment and Plan - Patient Problems (1) Acute pericarditis Current Visit: Yes Status: Acute Plan to address problem: Patient's chest pain characteristics, ECG appear to suggest acute pericarditis. We will add indomethacin 50 mg 3 times a day to her regimen. Although the patient reports a history of allergic reaction to Toradol, she is able to tolerate nonsteroidal agents including proven tolerance to ibuprofen. Echocardiogram will be done for left ventricular function assessment, and assessment for pericardial effusion.
[2019-09-11] MEDS ORDERED: COLCHICINE 0.6 MG CAP PO SCH (11:00)
[2019-09-11] MEDS: COLCHICINE 0.6 MG CAP PO SCH ×2 (11:38→21:45)
[2019-09-11] MEDS: INDOMETHACIN 25 MG CAP PO SCH ×2 (15:00→21:45)
[2019-09-11] MEDS: ONDANSETRON 4 MG/2 ML INJ IV PRN (18:44)
[2019-09-12] MEDS: INDOMETHACIN 25 MG CAP PO SCH (06:20)
[2019-09-12 07:59] LABS: Basophils # (Auto) 0.1 K/mm3 (0.0-0.1); Basophils % (Auto) 0.7 % (0.0-1.8); Eosinophils % (Auto) 0.1 % (0.0-4.3); Hematocrit 37.4 % (30.3-42.9); Hemoglobin 12.4 gm/dl (10.1-14.3); Mean Corpuscular HGB Conc 33 % (30-34); Mean Corpuscular Volume 89 fl (79-97); Monocytes % (Auto) 10.9 % (0.0-7.3); Platelet Count 318 K/mm3 (140-440); Red Blood Count 4.22 M/mm3 (3.65-5.03); Red Cell Distribution Width 15.5 % (13.2-15.2)
[2019-09-12 08:07] LABS: INR 0.82 (0.87-1.13)
[2019-09-12 08:20] LABS: BUN/Creatinine Ratio 26; Blood Urea Nitrogen 18 mg/dL (7-17); Calcium 8.8 mg/dL (8.4-10.2); Hemolysis Index 11
[2019-09-12] MEDS: ONDANSETRON 4 MG/2 ML INJ IV PRN (08:22)
[2019-09-12] MEDS: MORPHINE 2 MG/1 ML INJ IV PRN (08:22)
[2019-09-12 09:55] VITALS: BP 115/76
--- NOTE | 2019-09-12 10:18 | Discharge Summary ---
Providers - Providers Date of Admission: 09/11/19 02:55 Attending physician: SHIMA TINEO MD 09/11/19 Consult to Cardiac Rehabilitation [CONS] Routine Reason For Exam: Phase I 09/11/19 00:46 Consult to Cardiology [CONS] Routine Consulting Provider: SWETA JOE Reason For Exam: chest pain Primary care physician: AT [facility] Hospitalization Condition: Fair Hospital course: 34-year-old woman who presented with chest pain. She was found to have acute pericarditis. Her risk factors included lupus and rheumatoid arthritis. She was treated medically and subsequently discharged. Tobacco abuse/dependence Smoking cessation counseling performed for 10 minutes, nicotine patches when necessary Preventative health counseling performed for 17 minutes Diagnosis Acute pericarditis Lupus Rheumatoid arthritis Tobacco abuse/dependence SIRS w/out organ dysfunction, no infection Disposition: DC- TO HOME OR SELFCARE Time spent for discharge: 33 mins Core Measure Documentation - Palliative Care Palliative Care/ Comfort Measures: Not Applicable - Core Measures Any of the following diagnoses?: none Exam - Constitutional Vitals: Temp Pulse Resp BP Pulse Ox 97.7 F 89 16 115/76 94 09/12/19 08:14 09/12/19 03:56 09/12/19 08:14 09/12/19 08:14 09/12/19 03:35 General appearance: Present: no acute distress, well-nourished - EENT Eyes: Present: PERRL ENT: hearing intact, clear oral mucosa - Neck Neck: Present: supple, normal ROM - Respiratory Respiratory effort: normal Respiratory: bilateral: CTA - Cardiovascular Heart Sounds: Present: S1 & S2, rub. Absent: click - Extremities Extremities: pulses symmetrical, No edema Peripheral Pulses: within normal limits - Abdominal General gastrointestinal: Present: soft, non-tender, non-distended, normal bowel sounds Female genitourinary: Present: normal - Integumentary Integumentary: Present: clear, warm, dry - Musculoskeletal Musculoskeletal: gait normal, strength equal bilaterally - Psychiatric Psychiatric: appropriate mood/affect, intact judgment & insight - Neurologic Neurologic: CNII-XII intact, moves all extremities Plan Follow up with: PRIMARY CARE, [Primary Care Provider] - 3-5 Days Prescriptions: RX: Colchicine 0.6 mg PO BID #60 capsule RX: Indomethacin [Indocin] 50 mg PO Q8HR #50 capsule RX: HYDROcodone/APAP 5-325 [[place] 5-325 mg TAB] 1 each PO Q6HR PRN #12 tablet PRN Reason: Pain
--- NOTE | 2019-09-12 11:07 | Progress Note ---
<LUL HEALY - Last Filed: 09/12/19 11:03> Assessment and Plan - Patient Problems (1) Acute pericarditis Current Visit: Yes Status: Acute Plan to address problem: Acute pericarditis Echocardiogram done shows a normal left ventricular systolic function, ejection fraction 60-65%. Continue indomethacin and Colchicine as ordered. Although the patient reports a history of allergic reaction to Toradol, she is able to tolerate nonsteroidal agents including proven tolerance to ibuprofen. Subjective Date of service: 09/12/19 Interval history: Patient reports continued chest pain but some improvement since admission. Objective Vital Signs Temp Pulse Resp BP Pulse Ox 09/12/19 08:14 97.7 F 16 115/76 09/12/19 03:56 89 09/12/19 03:35 98.5 F 71 18 109/76 94 09/11/19 23:27 18 09/11/19 22:43 98.1 F 89 18 118/78 99 09/11/19 20:17 98.3 F 93 H 18 107/75 99 09/11/19 19:05 95 H 09/11/19 16:07 98.2 F 18 112/67 09/11/19 12:00 92 H 09/11/19 11:41 18 100/64 09/11/19 11:40 91 H 91/57 94 - Physical Examination General: No Apparent Distress HEENT: Positive: PERRL Neck: Positive: neck supple Cardiac: Positive: Reg Rate and Rhythm Lungs: Positive: Normal Breath Sounds Neuro: Positive: Grossly Intact Abdomen: Positive: Soft Extremities: Absent: edema - Labs and Meds Coagulation 09/12/19 Range/Units 07:25 PT 11.2 L (12.2-14.9) Sec. INR 0.82 L (0.87-1.13) CBC 09/12/19 Range/Units 07:40 WBC 9.4 (4.5-11.0) K/mm3 RBC 4.22 (3.65-5.03) M/mm3 Hgb 12.4 (10.1-14.3) gm/dl Hct 37.4 (30.3-42.9) % Plt Count 318 (140-440) K/mm3 Lymph # 4.0 (1.2-5.4) K/mm3 [place] # 1.0 H (0.0-0.8) K/mm3 Eos # 0.0 (0.0-0.4) K/mm3 Baso # 0.1 (0.0-0.1) K/mm3 Comprehensive Metabolic Panel 09/12/19 Range/Units 07:25 Sodium 142 (137-145) mmol/L Potassium 4.8 (3.6-5.0) mmol/L Chloride 106.5 (98-107) mmol/L Carbon Dioxide 21 L (22-30) mmol/L BUN 18 H (7-17) mg/dL Creatinine 0.7 (0.7-1.2) mg/dL Glucose 110 H (65-100) mg/dL Calcium 8.8 (8.4-10.2) mg/dL <SWETA JOE - Last Filed: 09/12/19 12:03> Assessment and Plan I've seen and evaluated the patient and agree with the assessment and plan. The patient presented to the hospital with chest pain and symptoms congruent with acute pericarditis. Patient's been started on anti-inflammatory therapy with colchicine and Indocin. We'll continue current medical therapy. Additionally patient is a long-term smoker. Will not start patient on nicotine patches as a patient has a history of DVTs. However will start patient on Wellbutrin to help her stop smoking. Objective Vital Signs Temp Pulse Resp BP Pulse Ox 09/12/19 08:14 97.7 F 16 115/76 09/12/19 03:56 89 09/12/19 03:35 98.5 F 71 18 109/76 94 09/11/19 23:27 18 09/11/19 22:43 98.1 F 89 18 118/78 99 09/11/19 20:17 98.3 F 93 H 18 107/75 99 09/11/19 19:05 95 H 09/11/19 16:07 98.2 F 18 112/67 - Labs and Meds Coagulation 09/12/19 Range/Units 07:25 PT 11.2 L (12.2-14.9) Sec. INR 0.82 L (0.87-1.13) CBC 09/12/19 Range/Units 07:40 WBC 9.4 (4.5-11.0) K/mm3 RBC 4.22 (3.65-5.03) M/mm3 Hgb 12.4 (10.1-14.3) gm/dl Hct 37.4 (30.3-42.9) % Plt Count 318 (140-440) K/mm3 Lymph # 4.0 (1.2-5.4) K/mm3 [place] # 1.0 H (0.0-0.8) K/mm3 Eos # 0.0 (0.0-0.4) K/mm3 Baso # 0.1 (0.0-0.1) K/mm3 Comprehensive Metabolic Panel 09/12/19 Range/Units 07:25 Sodium 142 (137-145) mmol/L Potassium 4.8 (3.6-5.0) mmol/L Chloride 106.5 (98-107) mmol/L Carbon Dioxide 21 L (22-30) mmol/L BUN 18 H (7-17) mg/dL Creatinine 0.7 (0.7-1.2) mg/dL Glucose 110 H (65-100) mg/dL Calcium 8.8 (8.4-10.2) mg/dL
[2019-09-12] MEDS: COLCHICINE 0.6 MG CAP PO SCH (11:26)
[2019-09-12] MEDS: PANTOPRAZOLE 40 MG TAB PO SCH (11:27)
[2019-09-12] MEDS ORDERED: buPROPion 75 MG TAB PO SCH (12:00)
== END 2019-09-12 12:43 | disposition home or self-care (01) | DRG 315 ==
LOC: ED 21:12 → 4A 09-11 02:55
PROVIDERS: ADMIT Internal Medicine Geriatric Medicine; ATTEND Internal Medicine
DX: I30.9 Acute pericarditis, unspecified (principal); R65.10 Systemic inflammatory response syndrome (SIRS) of non-infectious origin without acute organ dysfunction; F17.210 Nicotine dependence, cigarettes, uncomplicated; Z90.710 Acquired absence of both cervix and uterus; Z79.899 Other long term (current) drug therapy; Z82.49 Family history of ischemic heart disease and other diseases of the circulatory system; Z83.3 Family history of diabetes mellitus; Z80.9 Family history of malignant neoplasm, unspecified; Z88.2 Allergy status to sulfonamides; Z88.8 Allergy status to other drugs, medicaments and biological substances; Z88.6 Allergy status to analgesic agent; Z91.040 Latex allergy status
CPT/HCPCS: 36415; 71045; 78582; 80048; 84484; 85007; 85025; 85610; 93005; 93010; 93306; G0378; A9540; A9558; J2270; J2405; J2930; J3010